=== PATIENT | female | born 1960 | race Caucasian/White ===

== ENCOUNTER → 2022-02-12 | Day surgery (SDC) | payer OTHER ==
[~2022-02-12] VITALS: Ht 172.7 cm; Wt 120.2 kg
[~2022-02-12] MED LIST: MELATONIN5 M2 PO; TYLENOL PM EX-1 EACH PO; VITAMIN B-121000 MC1 PO; VITAMIN D PO
[2022-02-12 10:07] LABS: HCT 44.1 % (37.0-47.0); HGB 14.2 g/dl (12.5-16.0); MCH 29.3 pg (25.0-31.0); MCHC 32.2 g/dL (32.0-36.0); MCV 90.9 fL (78.0-100.0); MPV 10.2 fL (6.0-9.5); RBC 4.85 M/uL (4.20-5.40); RDW 15.1 % (11.5-14.0)
[2022-02-12 10:25] LABS: ALBUMIN 4.1 g/dL (3.4-5.0); BILIRUBIN - TOTAL 0.8 mg/dL (0.2-1.0); BUN/CREAT RATIO (CALC) 16.1 RATIO; CREATININE 0.87 mg/dL (0.51-0.95); GLOBULIN (CALCULATION) 3.5 g/dL; POTASSIUM 4.1 mmol/L (3.5-5.1); TOTAL PROTEIN 7.6 g/dL (6.4-8.2)
== END | disposition home or self-care (01) ==
LOC: FAS 09:20
PROVIDERS: Surgery
DX: Z12.11 Encounter for screening for malignant neoplasm of colon (principal); K58.9 Irritable bowel syndrome, unspecified; I10 Essential (primary) hypertension; Z87.891 Personal history of nicotine dependence
CPT/HCPCS: 36415; 80053; J1610; J2704; J7120